=== PATIENT | male | born 1975 | race Caucasian/White ===

== ENCOUNTER 2021-12-10 08:35 | Outpatient (CLI) | payer BC, SELFPAY ==
[2021-12-10 12:49] LABS: Albumin* 4.4 g/dL (3.3-5.0); Chloride* 102 mmol/L (96-114); Potassium* 4.3 mmol/L (3.6-5.1); Sodium* 139 mmol/L (135-149)
[2021-12-10 12:51] LABS: Bilirubin Total* 0.6 mg/dL (0.1-1.5); Carbon Dioxide* 30 mmol/L (20-32); Cholesterol* 125 mg/dL (90-199); Creatinine* 0.9 mg/dL (0.5-1.5); Estimated Glomerular Filt Rate 107 ml/min; Total Protein* 6.9 g/dL (6.0-8.3)
[2021-12-10 12:52] LABS: Alanine Aminotransferase* 23 U/L (4-50); Alkaline Phosphatase* 68 U/L (40-150); Aspartate Amino Transferase* 23 U/L (12-35); Blood Urea Nitrogen* 21 mg/dL (5-24); Calcium* 9.1 mg/dL (8.4-10.6); Glucose* 102 mg/dL (60-115); HDL Cholesterol* 39 mg/dL (>=40); LDL Cholesterol Calculated 73 mg/dL (<100); Triglycerides* 64 mg/dL (40-149)
== END 2021-12-10 08:36 | disposition home or self-care (01) ==
PROVIDERS: PCP Family Medicine; Visit Provider Physician Assistant Medical
DX: Z00.00 Encounter for general adult medical examination without abnormal findings (principal); E78.00 Pure hypercholesterolemia, unspecified; Z13.6 Encounter for screening for cardiovascular disorders; Z13.1 Encounter for screening for diabetes mellitus
CPT/HCPCS: 80053; 80061

== ENCOUNTER 2022-10-16 09:02 | Outpatient (CLI) | payer BC, SELFPAY | END 2022-10-16 09:03 | disposition home or self-care (01) | LOC: NFLDREF 10-17 10:16 | PROVIDERS: PCP Family Medicine; Referring Provider Family Medicine; Visit Provider Family Medicine | DX: Z00.00 Encounter for general adult medical examination without abnormal findings (principal); E78.00 Pure hypercholesterolemia, unspecified | CPT/HCPCS: 80053; 80061 ==

== ENCOUNTER 2022-11-20 08:09 | Outpatient (CLI) | payer BC, SELFPAY | END 2022-11-20 08:10 | disposition home or self-care (01) | LOC: NFLDREF 11-24 09:20 | PROVIDERS: PCP Family Medicine; Referring Provider Family Medicine; Visit Provider Family Medicine | DX: E78.00 Pure hypercholesterolemia, unspecified (principal) | CPT/HCPCS: 80061 ==

== ENCOUNTER 2023-04-12 08:35 | Outpatient (CLI) | payer BC, SELFPAY | END 2023-04-12 08:36 | disposition home or self-care (01) | LOC: RAD 08:35 | PROVIDERS: PCP Family Medicine; Visit Provider Family Medicine | DX: I49.3 Ventricular premature depolarization (principal); I34.0 Nonrheumatic mitral (valve) insufficiency | CPT/HCPCS: 93306 ==

== ENCOUNTER 2023-12-07 08:05 | Outpatient (CLI) | payer BC, SELFPAY | END 2023-12-07 08:06 | disposition home or self-care (01) | LOC: NFLDREF 12-08 11:18 | PROVIDERS: PCP Family Medicine; Referring Provider Family Medicine; Visit Provider Family Medicine | DX: Z00.00 Encounter for general adult medical examination without abnormal findings (principal); E78.00 Pure hypercholesterolemia, unspecified; Z13.1 Encounter for screening for diabetes mellitus | CPT/HCPCS: 80053; 80061 ==